=== PATIENT | male | born 1960 | race Caucasian/White ===

== ENCOUNTER 2018-07-07 10:10 | Inpatient (IN) ==
[2018-07-07] MEDS ORDERED: PHENYLEPHRINE 1 MG/10 ML SYRINGE IV ONE (10:38)
[2018-07-07] MEDS ORDERED: ePHEDrine 50 MG/ML AMP ONE (10:38)
[2018-07-07] MEDS ORDERED: SEVOFLURANE 1 UNIT/15 MINUTE INH ONE (10:38)
[2018-07-07] MEDS ORDERED: PROPOFOL 200 MG/20 ML VIAL IV ONE (10:38)
[2018-07-07] MEDS ORDERED: fentaNYL 100 MCG/2 ML VIAL ONE (10:39)
[2018-07-07] MEDS ORDERED: ROCURONIUM 100 MG/10 ML VIAL IV ONE (10:39)
[2018-07-07] MEDS ORDERED: MIDAZOLAM 2 MG/2 ML VIAL ONE (10:39)
[2018-07-07] MEDS ORDERED: LACTATED RINGERS 1,000 ML IV ONE (10:39)
[2018-07-07] MEDS ORDERED: SODIUM CHLORIDE 0.9% 1,000 ML IV ONE (10:41)
[2018-07-07] MEDS ORDERED: CEFTAROLINE 600 MG in SODIUM CHLORIDE 0.9% 100 ML IV STA (10:57)
[2018-07-07] MEDS ORDERED: LACTATED RINGERS 1,000 ML IV SCH (11:00)
[2018-07-07] MEDS ORDERED: ONDANSETRON 4 MG/2 ML VIAL ONE (11:07)
[2018-07-07 11:11] LABS: Basophils % 0.2 % (0.0-0.8); Eosinophils % 0.1 % (0.00-10.9); Hematocrit 48.2 VOL% (42.0-52.0); Hemoglobin 15.7 GM/DL (14.0-18.0); Immature Granulocytes % 0.4 %; Immature Granulocytes Absolute 0.04 #; Lymphocytes # 0.3 10*3/uL (1.4-4.0); Lymphocytes % 3.2 % (21.2-54.2); Mean Corpuscular HGB Conc 32.6 GM/DL (32-36); Mean Corpuscular Hemoglobin 29 PG (27-34); Mean Corpuscular Volume 90.3 FL (87-102); Mean Platelet Volume 10.3 FL (9.6-12.0); Monocytes # 0.5 10*3/uL (0.11-0.8); Monocytes % 4.8 % (1.7-12.7); Neutrophils % 91.3 % (38.7-73.9); Platelet Count 163 T/CUMM (130-400); Red Blood Count 5.34 MC/CUMM (3.8-5.5); Red Cell Distribution Width 12.9 % (9.3-17.3); White Blood Count 9.9 T/CUMM (4-12)
[2018-07-07] MEDS ORDERED: ONDANSETRON 4 MG/2 ML VIAL IV STA (11:16)
[2018-07-07] MEDS ORDERED: SODIUM CHLORIDE 0.9% 1,000 ML IV STA (11:17)
[2018-07-07 11:35] LABS: Band Neutrophils 14 % (0-10); Hypochromasia 1+; Lymphocytes 4 % (20-55); Platelet Estimate Adequate; Segmented Neutrophils 81 % (50-85); Total Cells Counted 100
[2018-07-07 12:00] LABS: Calcium 8.6 MG/DL (8.5-10.1); Osmolality,Calculated 282.1 MOS/KG (273-304); Potassium 3.8 MMOL/L (3.5-5.1); Total Protein 7.3 G/DL (6.4-8.3)
[2018-07-07] MEDS ORDERED: DEXTROSE 50% 25 GM/50 ML VIAL IV PRN (12:20)
[2018-07-07] MEDS ORDERED: PROMETHAZINE 25 MG/1 ML VIAL IM PRN (12:20)
[2018-07-07] MEDS ORDERED: ONDANSETRON 4 MG/2 ML VIAL IV PRN (12:20)
[2018-07-07] MEDS ORDERED: GLUCAGON 1 MG VIAL IM PRN (12:20)
[2018-07-07] MEDS ORDERED: ACETAMINOPHEN 325 MG TABLET PO PRN (12:20)
[2018-07-07] MEDS ORDERED: FAMOTIDINE 20 MG TABLET PO PRN (12:25)
[2018-07-07] MEDS ORDERED: SODIUM CHLORIDE 0.9% 2,000 ML IV STA (12:38)
[2018-07-07] MEDS: SODIUM CHLORIDE 0.9% 1,000 ML IV SCH ×2 (14:21→18:37)
[2018-07-07 15:39] LABS: Apearance,Urine Slightly Hazy (Clear); Bilirubin,Urine Negative (Negative); Blood, Urine Moderate mg/dL (Negative); Glucose,Urine (UA) >=500 mg/dL (Negative); Hyaline Casts,Urine 7 /LPF (0-3); Ketones,Urine 20 mg/dL (Negative); Mucus,Urine Occasional /LPF (Occasional); Nitrite,Urine Negative (Negative); Protein,Urine 30 MG/DL; RBC,Urine 1 /HPF (0-4); Urine Color Yellow (Yellow); Urine Specific Gravity 1.023 (1.001-1.035); Urine Urobilinogen < 2.0 EU/DL (0.2-1.0); WBC,Urine <1 /HPF (0-6)
[2018-07-07] MEDS ORDERED: methylPREDNISolone SOD SUC 125 MG/2 ML VIAL IV ONE (18:11)
[2018-07-07] MEDS ORDERED: diphenhydrAMINE 50 MG/1 ML VIAL IV ONE (18:12)
[2018-07-07] MEDS ORDERED: ACETAMINOPHEN 500 MG TABLET PO ONE (18:13)
[2018-07-07] MEDS: INSULIN LISPRO 100 UNIT/ML SUBCUT SCH ×2 (18:29→23:55)
[2018-07-07] MEDS: AMPICILLIN INJ 2,000 MG in SODIUM CHLORIDE 0.9% 100 ML IV SCH (18:36)
[2018-07-07] MEDS: GABAPENTIN 600 MG TABLET PO PRN ×2 (19:22→21:53)
[2018-07-07] MEDS: VANCOMYCIN INJ 2,250 MG in SODIUM CHLORIDE 0.9% 500 ML IV SCH (20:47)
[2018-07-07] MEDS: OMEGA 3 ACID ETHYL ESTERS 1 GM CAPSULE PO SCH (21:53)
[2018-07-07] MEDS: METOPROLOL TARTRATE 25 MG TABLET PO SCH (21:53)
[2018-07-07] MEDS: ENOXAPARIN 40 MG/0.4 ML SYRINGE SUBCUT SCH (21:55)
[2018-07-08] MEDS: AMPICILLIN INJ 2,000 MG in SODIUM CHLORIDE 0.9% 100 ML IV SCH ×4 (00:58→18:40)
[2018-07-08] MEDS ORDERED: diphenhydrAMINE 50 MG/1 ML VIAL IV PRN (02:24)
[2018-07-08] MEDS: diphenhydrAMINE CAP 50 MG CAPSULE PO PRN ×3 (02:41→21:48)
[2018-07-08] MEDS: SODIUM CHLORIDE 0.9% 1,000 ML IV SCH ×2 (04:00→06:12)
[2018-07-08 04:41] LABS: Basophils % 0.2 % (0.0-0.8); Hemoglobin 13.4 GM/DL (14.0-18.0); Immature Granulocytes % 0.4 %; Immature Granulocytes Absolute 0.05 #; Lymphocytes # 0.8 10*3/uL (1.4-4.0); Lymphocytes % 6.4 % (21.2-54.2); Mean Corpuscular HGB Conc 31.9 GM/DL (32-36); Mean Corpuscular Hemoglobin 29 PG (27-34); Mean Corpuscular Volume 91.3 FL (87-102); Mean Platelet Volume 11.1 FL (9.6-12.0); Monocytes # 0.7 10*3/uL (0.11-0.8); Monocytes % 5.5 % (1.7-12.7); Neutrophils # 10.6 10*3/uL (1.4-7.4); Neutrophils % 87.5 % (38.7-73.9); Platelet Count 136 T/CUMM (130-400); White Blood Count 12.1 T/CUMM (4-12)
[2018-07-08 04:50] LABS: Calcium 8.2 MG/DL (8.5-10.1)
[2018-07-08 04:53] LABS: Albumin 2.5 G/DL (3.4-5.0); Bilirubin,Total 1.2 MG/DL (0.2-1.0); Risk Ratio 3.13; Total Protein 6.9 G/DL (6.4-8.3); VLDL CHOLESTEROL 22.8 MG/DL
[2018-07-08 05:10] LABS: Platelet Estimate Adequate
[2018-07-08] MEDS ORDERED: NON-FORMULARY MEDICATION (Liraglutide [Victoza 3-Pak] 1.2 MG) SUBCUT SCH (09:00)
[2018-07-08] MEDS: MULTIVITAMIN (CENTRUM) TABLET PO SCH (09:11)
[2018-07-08] MEDS: ASPIRIN EC 81 MG TABLET PO SCH (09:11)
[2018-07-08] MEDS: VANCOMYCIN INJ 2,250 MG in SODIUM CHLORIDE 0.9% 500 ML IV SCH ×2 (09:11→21:46)
[2018-07-08] MEDS: PITAVASTATIN 2 MG TABLET PO SCH (09:12)
[2018-07-08] MEDS: METOPROLOL TARTRATE 25 MG TABLET PO SCH ×2 (09:12→21:47)
[2018-07-08] MEDS: OMEGA 3 ACID ETHYL ESTERS 1 GM CAPSULE PO SCH ×2 (09:12→21:47)
[2018-07-08] MEDS: CLOPIDOGREL 75 MG TABLET PO SCH (09:12)
[2018-07-08] MEDS: INSULIN LISPRO 100 UNIT/ML SUBCUT SCH ×4 (09:33→21:48)
[2018-07-08] MEDS: CLOTRIMAZOLE 1% CREAM 15 GM TUBE TOP SCH ×2 (12:15→21:48)
[2018-07-08] MEDS: SODIUM HYPOCHLORITE 0.25% IRRIG 473 ML BOTTLE TOP SCH (12:15)
[2018-07-08] MEDS: CHLORHEXIDINE 4% SOLN 118 ML BOTTLE TOP SCH (12:15)
[2018-07-08] MEDS: COLLAGENASE OINT 30 GM TUBE TOP SCH (12:15)
[2018-07-08] MEDS: INSULIN GLARGINE 100 UNIT/ML SUBCUT SCH (12:55)
[2018-07-08] MEDS: ENOXAPARIN 40 MG/0.4 ML SYRINGE SUBCUT SCH (21:47)
[2018-07-08] MEDS: GABAPENTIN 600 MG TABLET PO PRN ×2 (21:47→23:10)
[2018-07-09] MEDS: AMPICILLIN INJ 2,000 MG in SODIUM CHLORIDE 0.9% 100 ML IV SCH ×2 (01:58→06:42)
[2018-07-09 04:26] LABS: Basophils % 0.2 % (0.0-0.8); Eosinophils # 0.6 10*3/uL (0.0-0.87); Eosinophils % 5.3 % (0.00-10.9); Hematocrit 37.3 VOL% (42.0-52.0); Hemoglobin 12.2 GM/DL (14.0-18.0); Immature Granulocytes % 0.3 %; Immature Granulocytes Absolute 0.03 #; Lymphocytes # 1.5 10*3/uL (1.4-4.0); Lymphocytes % 12.2 % (21.2-54.2); Mean Corpuscular HGB Conc 32.7 GM/DL (32-36); Mean Corpuscular Hemoglobin 30 PG (27-34); Mean Corpuscular Volume 90.8 FL (87-102); Mean Platelet Volume 11.7 FL (9.6-12.0); Monocytes # 1.1 10*3/uL (0.11-0.8); Monocytes % 8.8 % (1.7-12.7); Neutrophils # 8.8 10*3/uL (1.4-7.4); Neutrophils % 73.2 % (38.7-73.9); Platelet Count 136 T/CUMM (130-400); Red Blood Count 4.11 MC/CUMM (3.8-5.5); Red Cell Distribution Width 13.2 % (9.3-17.3); White Blood Count 11.9 T/CUMM (4-12)
[2018-07-09 04:49] LABS: Calcium 7.8 MG/DL (8.5-10.1); Osmolality,Calculated 279.8 MOS/KG (273-304); Potassium 3.7 MMOL/L (3.5-5.1)
[2018-07-09] MEDS: VANCOMYCIN INJ 2,250 MG in SODIUM CHLORIDE 0.9% 500 ML IV SCH (09:30)
[2018-07-09] MEDS: CLOPIDOGREL 75 MG TABLET PO SCH (09:43)
[2018-07-09] MEDS: METOPROLOL TARTRATE 25 MG TABLET PO SCH (09:43)
[2018-07-09] MEDS: OMEGA 3 ACID ETHYL ESTERS 1 GM CAPSULE PO SCH (09:44)
[2018-07-09] MEDS: PITAVASTATIN 2 MG TABLET PO SCH (09:44)
[2018-07-09] MEDS: ASPIRIN EC 81 MG TABLET PO SCH (09:44)
[2018-07-09] MEDS: MULTIVITAMIN (CENTRUM) TABLET PO SCH (09:45)
[2018-07-09] MEDS: CHLORHEXIDINE 4% SOLN 118 ML BOTTLE TOP SCH (09:45)
[2018-07-09] MEDS: SODIUM HYPOCHLORITE 0.25% IRRIG 473 ML BOTTLE TOP SCH (09:45)
[2018-07-09] MEDS: CLOTRIMAZOLE 1% CREAM 15 GM TUBE TOP SCH (09:46)
[2018-07-09] MEDS: INSULIN GLARGINE 100 UNIT/ML SUBCUT SCH (09:46)
[2018-07-09] MEDS: COLLAGENASE OINT 30 GM TUBE TOP SCH (09:46)
[2018-07-09] MEDS: INSULIN LISPRO 100 UNIT/ML SUBCUT SCH ×2 (09:47→12:02)
[2018-07-09] MEDS: GABAPENTIN 600 MG TABLET PO PRN (09:53)
[2018-07-09] MEDS ORDERED: AMOXICILLIN 875 MG TABLET PO SCH (10:30)
[2018-07-09 12:34] VITALS: BP 103/70
== END 2018-07-09 15:17 | disposition home or self-care (01) | DRG 624 ==
LOC: N.ED 10:10 → N.EDINP 12:20 → N.2E 17:34
PROVIDERS: ADMIT Internal Medicine; ATTEND Internal Medicine

== ENCOUNTER 2018-07-14 14:23 | Inpatient (IN) ==
[2018-07-14] MEDS ORDERED: CEFTAROLINE 600 MG in SODIUM CHLORIDE 0.9% 100 ML IV STA (15:01)
[2018-07-14 15:26] LABS: Basophils % 0.4 % (0.0-0.8); Eosinophils # 0.2 10*3/uL (0.0-0.87); Eosinophils % 1.5 % (0.00-10.9); Hematocrit 38.2 VOL% (42.0-52.0); Hemoglobin 12.2 GM/DL (14.0-18.0); Lymphocytes # 2.2 10*3/uL (1.4-4.0); Lymphocytes % 21.6 % (21.2-54.2); Mean Corpuscular HGB Conc 31.9 GM/DL (32-36); Mean Corpuscular Hemoglobin 29 PG (27-34); Mean Corpuscular Volume 90.5 FL (87-102); Mean Platelet Volume 10.3 FL (9.6-12.0); Monocytes # 1.1 10*3/uL (0.11-0.8); Monocytes % 10.4 % (1.7-12.7); Neutrophils # 6.6 10*3/uL (1.4-7.4); Neutrophils % 65.1 % (38.7-73.9); Platelet Count 329 T/CUMM (130-400); Red Blood Count 4.22 MC/CUMM (3.8-5.5); Red Cell Distribution Width 12.9 % (9.3-17.3); White Blood Count 10.1 T/CUMM (4-12)
[2018-07-14] MEDS ORDERED: GLUCAGON 1 MG VIAL IM PRN (15:34)
[2018-07-14] MEDS ORDERED: DEXTROSE 50% 25 GM/50 ML SYRINGE IV PRN (15:34)
[2018-07-14] MEDS ORDERED: ONDANSETRON 4 MG/2 ML VIAL IV PRN (15:34)
[2018-07-14] MEDS ORDERED: FAMOTIDINE 20 MG TABLET PO PRN (15:37)
[2018-07-14 15:47] LABS: Albumin 2.2 G/DL (3.4-5.0); Bilirubin,Total 0.6 MG/DL (0.2-1.0); Calcium 8.5 MG/DL (8.5-10.1); Osmolality,Calculated 275.1 MOS/KG (273-304); Potassium 3.7 MMOL/L (3.5-5.1); Total Protein 7.2 G/DL (6.4-8.3)
[2018-07-14] MEDS ORDERED: IBUPROFEN 400 MG TABLET PO PRN (16:08)
[2018-07-14] MEDS: ENOXAPARIN 40 MG/0.4 ML SYRINGE SUBCUT SCH (18:11)
[2018-07-14] MEDS: INSULIN REGULAR 100 UNIT/ML SUBCUT SCH ×2 (18:11→21:22)
[2018-07-14] MEDS: diphenhydrAMINE CAP 25 MG CAPSULE PO PRN (18:12)
[2018-07-14] MEDS: GABAPENTIN 600 MG TABLET PO PRN ×2 (18:12→20:45)
[2018-07-14] MEDS: OMEGA 3 ACID ETHYL ESTERS 1 GM CAPSULE PO SCH (20:45)
[2018-07-14] MEDS: METOPROLOL TARTRATE 25 MG TABLET PO SCH (20:46)
[2018-07-14] MEDS: metFORMIN 500 MG TABLET PO SCH (20:46)
[2018-07-14] MEDS: hydrOXYzine HCL 25 MG TABLET PO SCH (20:46)
[2018-07-14] MEDS: CLOTRIMAZOLE 1% CREAM 15 GM TUBE TOP SCH (20:47)
[2018-07-15] MEDS: CEFTAROLINE 600 MG in SODIUM CHLORIDE 0.9% 100 ML IV SCH ×2 (03:57→15:04)
[2018-07-15 04:51] LABS: Basophils % 0.3 % (0.0-0.8); Eosinophils # 0.3 10*3/uL (0.0-0.87); Eosinophils % 2.9 % (0.00-10.9); Hemoglobin 11.2 GM/DL (14.0-18.0); Immature Granulocytes % 1.7 %; Immature Granulocytes Absolute 0.15 #; Lymphocytes # 2.3 10*3/uL (1.4-4.0); Lymphocytes % 26.2 % (21.2-54.2); Mean Corpuscular Hemoglobin 29 PG (27-34); Mean Corpuscular Volume 90.9 FL (87-102); Mean Platelet Volume 10.5 FL (9.6-12.0); Monocytes # 1.1 10*3/uL (0.11-0.8); Monocytes % 12.2 % (1.7-12.7); Neutrophils % 56.7 % (38.7-73.9); Platelet Count 324 T/CUMM (130-400); Red Blood Count 3.85 MC/CUMM (3.8-5.5); Red Cell Distribution Width 12.9 % (9.3-17.3); White Blood Count 8.9 T/CUMM (4-12)
[2018-07-15 05:05] LABS: Albumin 1.9 G/DL (3.4-5.0); Bilirubin,Total 0.8 MG/DL (0.2-1.0); Osmolality,Calculated 289.4 MOS/KG (273-304); Potassium 3.4 MMOL/L (3.5-5.1); Total Protein 6.3 G/DL (6.4-8.3)
[2018-07-15] MEDS: SIMVASTATIN 40 MG TABLET PO SCH (09:01)
[2018-07-15] MEDS: INSULIN REGULAR 100 UNIT/ML SUBCUT SCH ×4 (09:01→21:14)
[2018-07-15] MEDS: CLOPIDOGREL 75 MG TABLET PO SCH (09:01)
[2018-07-15] MEDS: metFORMIN 500 MG TABLET PO SCH (09:01)
[2018-07-15] MEDS: ASPIRIN EC 81 MG TABLET PO SCH (09:01)
[2018-07-15] MEDS: ESCITALOPRAM 10 MG TABLET PO SCH (09:01)
[2018-07-15] MEDS: PANTOPRAZOLE 40 MG TABLET PO SCH (09:01)
[2018-07-15] MEDS: hydrOXYzine HCL 25 MG TABLET PO SCH ×3 (09:01→21:07)
[2018-07-15] MEDS: OMEGA 3 ACID ETHYL ESTERS 1 GM CAPSULE PO SCH ×2 (09:01→21:07)
[2018-07-15] MEDS: METOPROLOL TARTRATE 25 MG TABLET PO SCH ×2 (09:01→21:07)
[2018-07-15] MEDS: MULTIVITAMIN (CENTRUM) TABLET PO SCH (09:01)
[2018-07-15] MEDS: CHLORHEXIDINE 4% SOLN 118 ML BOTTLE TOP SCH (09:01)
[2018-07-15] MEDS: CLOTRIMAZOLE 1% CREAM 15 GM TUBE TOP SCH ×2 (09:02→21:07)
[2018-07-15] MEDS: COLLAGENASE OINT 30 GM TUBE TOP SCH (09:02)
[2018-07-15] MEDS: GABAPENTIN 600 MG TABLET PO PRN ×2 (09:08→21:15)
[2018-07-15] MEDS ORDERED: INDOMETHACIN SR 75 MG CAPSULE PO SCH (12:30)
[2018-07-15] MEDS ORDERED: INDOMETHACIN 50 MG CAPSULE PO SCH (15:00)
[2018-07-15] MEDS: INSULIN GLARGINE 100 UNIT/ML SUBCUT SCH (15:04)
[2018-07-15] MEDS: ENOXAPARIN 40 MG/0.4 ML SYRINGE SUBCUT SCH (16:59)
[2018-07-15] MEDS: INDOMETHACIN 25 MG CAPSULE PO SCH (21:06)
[2018-07-15] MEDS: diphenhydrAMINE CAP 25 MG CAPSULE PO PRN (21:15)
[2018-07-16] MEDS: CEFTAROLINE 600 MG in SODIUM CHLORIDE 0.9% 100 ML IV SCH ×2 (03:53→15:56)
[2018-07-16 06:20] LABS: Basophils # 0.1 10*3/uL (0.0-0.2); Basophils % 0.7 % (0.0-0.8); Eosinophils # 0.3 10*3/uL (0.0-0.87); Eosinophils % 2.8 % (0.00-10.9); Hemoglobin 11.4 GM/DL (14.0-18.0); Immature Granulocytes % 1.2 %; Immature Granulocytes Absolute 0.11 #; Lymphocytes # 2.5 10*3/uL (1.4-4.0); Lymphocytes % 27.2 % (21.2-54.2); Mean Corpuscular HGB Conc 31.7 GM/DL (32-36); Mean Corpuscular Hemoglobin 29 PG (27-34); Mean Corpuscular Volume 90.9 FL (87-102); Mean Platelet Volume 10.7 FL (9.6-12.0); Monocytes # 1.1 10*3/uL (0.11-0.8); Monocytes % 11.7 % (1.7-12.7); Neutrophils # 5.2 10*3/uL (1.4-7.4); Neutrophils % 56.4 % (38.7-73.9); Platelet Count 339 T/CUMM (130-400); Red Blood Count 3.96 MC/CUMM (3.8-5.5); Red Cell Distribution Width 12.8 % (9.3-17.3); White Blood Count 9.2 T/CUMM (4-12)
[2018-07-16 06:35] LABS: Calcium 8.5 MG/DL (8.5-10.1); Osmolality,Calculated 281.7 MOS/KG (273-304); Potassium 3.3 MMOL/L (3.5-5.1)
[2018-07-16] MEDS: CLOTRIMAZOLE 1% CREAM 15 GM TUBE TOP SCH ×2 (08:50→21:25)
[2018-07-16] MEDS: Liraglutide [Victoza 3-Pak] 1.2 MG SUBCUT SCH (08:50)
[2018-07-16] MEDS: Dapagliflozin Propanediol [Farxiga] 10 MG PO SCH (08:50)
[2018-07-16] MEDS: ESCITALOPRAM 10 MG TABLET PO SCH (08:51)
[2018-07-16] MEDS: CLOPIDOGREL 75 MG TABLET PO SCH (08:51)
[2018-07-16] MEDS: METOPROLOL TARTRATE 25 MG TABLET PO SCH ×2 (08:51→21:25)
[2018-07-16] MEDS: PANTOPRAZOLE 40 MG TABLET PO SCH (08:51)
[2018-07-16] MEDS: OMEGA 3 ACID ETHYL ESTERS 1 GM CAPSULE PO SCH ×2 (08:51→21:25)
[2018-07-16] MEDS: MULTIVITAMIN (CENTRUM) TABLET PO SCH (08:51)
[2018-07-16] MEDS: hydrOXYzine HCL 25 MG TABLET PO SCH ×3 (08:51→21:25)
[2018-07-16] MEDS: INDOMETHACIN 25 MG CAPSULE PO SCH ×3 (08:51→21:25)
[2018-07-16] MEDS: SIMVASTATIN 40 MG TABLET PO SCH (08:51)
[2018-07-16] MEDS: ASPIRIN EC 81 MG TABLET PO SCH (08:51)
[2018-07-16] MEDS: INSULIN GLARGINE 100 UNIT/ML SUBCUT SCH (08:52)
[2018-07-16] MEDS: COLLAGENASE OINT 30 GM TUBE TOP SCH (08:52)
[2018-07-16] MEDS: INSULIN REGULAR 100 UNIT/ML SUBCUT SCH ×4 (08:52→21:25)
[2018-07-16] MEDS: CHLORHEXIDINE 4% SOLN 118 ML BOTTLE TOP SCH (09:12)
[2018-07-16] MEDS: GABAPENTIN 600 MG TABLET PO PRN ×2 (09:53→21:30)
[2018-07-16] MEDS: POTASSIUM CHLORIDE 20 MEQ TABLET PO SCH ×2 (10:41→14:40)
[2018-07-16] MEDS: ENOXAPARIN 40 MG/0.4 ML SYRINGE SUBCUT SCH (17:24)
[2018-07-17] MEDS: CEFTAROLINE 600 MG in SODIUM CHLORIDE 0.9% 100 ML IV SCH ×2 (03:15→15:13)
[2018-07-17 04:45] LABS: Cholesterol Crystals None Seen /LPF
[2018-07-17 04:49] LABS: Lymphocytes,Synovial Fluid 2 %; Neutrophils,Synovial Fluid 91 %
[2018-07-17 05:19] LABS: Basophils # 0.1 10*3/uL (0.0-0.2); Basophils % 0.6 % (0.0-0.8); Calcium 8.5 MG/DL (8.5-10.1); Eosinophils # 0.4 10*3/uL (0.0-0.87); Eosinophils % 4.2 % (0.00-10.9); Hematocrit 37.4 VOL% (42.0-52.0); Hemoglobin 11.8 GM/DL (14.0-18.0); Immature Granulocytes % 1.1 %; Lymphocytes # 2.2 10*3/uL (1.4-4.0); Lymphocytes % 23.2 % (21.2-54.2); Mean Corpuscular HGB Conc 31.6 GM/DL (32-36); Mean Corpuscular Hemoglobin 29 PG (27-34); Mean Corpuscular Volume 90.6 FL (87-102); Mean Platelet Volume 10.2 FL (9.6-12.0); Monocytes # 0.9 10*3/uL (0.11-0.8); Monocytes % 9.2 % (1.7-12.7); Neutrophils # 5.8 10*3/uL (1.4-7.4); Neutrophils % 61.7 % (38.7-73.9); Osmolality,Calculated 285.1 MOS/KG (273-304); Platelet Count 344 T/CUMM (130-400); Red Blood Count 4.13 MC/CUMM (3.8-5.5); Red Cell Distribution Width 12.5 % (9.3-17.3); White Blood Count 9.4 T/CUMM (4-12)
[2018-07-17] MEDS: INSULIN REGULAR 100 UNIT/ML SUBCUT SCH ×4 (08:10→21:25)
[2018-07-17] MEDS: Liraglutide [Victoza 3-Pak] 1.2 MG SUBCUT SCH (09:21)
[2018-07-17] MEDS: INSULIN GLARGINE 100 UNIT/ML SUBCUT SCH (09:22)
[2018-07-17] MEDS: METOPROLOL TARTRATE 25 MG TABLET PO SCH ×2 (09:23→21:27)
[2018-07-17] MEDS: OMEGA 3 ACID ETHYL ESTERS 1 GM CAPSULE PO SCH ×2 (09:25→21:25)
[2018-07-17] MEDS: SIMVASTATIN 40 MG TABLET PO SCH (09:25)
[2018-07-17] MEDS: INDOMETHACIN 25 MG CAPSULE PO SCH ×3 (09:25→21:25)
[2018-07-17] MEDS: Dapagliflozin Propanediol [Farxiga] 10 MG PO SCH (09:25)
[2018-07-17] MEDS: ASPIRIN EC 81 MG TABLET PO SCH (09:25)
[2018-07-17] MEDS: MULTIVITAMIN (CENTRUM) TABLET PO SCH (09:25)
[2018-07-17] MEDS: COLLAGENASE OINT 30 GM TUBE TOP SCH (09:26)
[2018-07-17] MEDS: CLOPIDOGREL 75 MG TABLET PO SCH (09:26)
[2018-07-17] MEDS: CHLORHEXIDINE 4% SOLN 118 ML BOTTLE TOP SCH (09:26)
[2018-07-17] MEDS: ESCITALOPRAM 10 MG TABLET PO SCH (09:26)
[2018-07-17] MEDS: hydrOXYzine HCL 25 MG TABLET PO SCH ×3 (09:26→21:25)
[2018-07-17] MEDS: PANTOPRAZOLE 40 MG TABLET PO SCH (09:26)
[2018-07-17] MEDS: CLOTRIMAZOLE 1% CREAM 15 GM TUBE TOP SCH ×2 (09:27→21:25)
[2018-07-17] MEDS: GABAPENTIN 600 MG TABLET PO PRN ×2 (09:32→21:25)
[2018-07-17] MEDS: ENOXAPARIN 40 MG/0.4 ML SYRINGE SUBCUT SCH (16:38)
[2018-07-18] MEDS: CEFTAROLINE 600 MG in SODIUM CHLORIDE 0.9% 100 ML IV SCH ×2 (03:43→15:40)
[2018-07-18 05:05] LABS: Basophils % 0.4 % (0.0-0.8); Eosinophils # 0.3 10*3/uL (0.0-0.87); Eosinophils % 2.4 % (0.00-10.9); Hemoglobin 11.6 GM/DL (14.0-18.0); Immature Granulocytes % 0.6 %; Immature Granulocytes Absolute 0.06 #; Lymphocytes % 18.4 % (21.2-54.2); Mean Corpuscular HGB Conc 32.2 GM/DL (32-36); Mean Corpuscular Hemoglobin 29 PG (27-34); Mean Platelet Volume 10.2 FL (9.6-12.0); Monocytes # 0.8 10*3/uL (0.11-0.8); Monocytes % 7.5 % (1.7-12.7); Neutrophils # 7.6 10*3/uL (1.4-7.4); Neutrophils % 70.7 % (38.7-73.9); Platelet Count 383 T/CUMM (130-400); Red Cell Distribution Width 12.5 % (9.3-17.3); White Blood Count 10.7 T/CUMM (4-12)
[2018-07-18 05:17] LABS: Calcium 8.4 MG/DL (8.5-10.1); Osmolality,Calculated 277.7 MOS/KG (273-304)
[2018-07-18] MEDS: INSULIN REGULAR 100 UNIT/ML SUBCUT SCH ×4 (07:37→21:49)
[2018-07-18] MEDS: ESCITALOPRAM 10 MG TABLET PO SCH (08:43)
[2018-07-18] MEDS: METOPROLOL TARTRATE 25 MG TABLET PO SCH ×2 (08:43→21:48)
[2018-07-18] MEDS: ASPIRIN EC 81 MG TABLET PO SCH (08:43)
[2018-07-18] MEDS: hydrOXYzine HCL 25 MG TABLET PO SCH ×3 (08:44→21:48)
[2018-07-18] MEDS: CLOPIDOGREL 75 MG TABLET PO SCH (08:44)
[2018-07-18] MEDS: OMEGA 3 ACID ETHYL ESTERS 1 GM CAPSULE PO SCH ×2 (08:44→21:48)
[2018-07-18] MEDS: PANTOPRAZOLE 40 MG TABLET PO SCH (08:44)
[2018-07-18] MEDS: MULTIVITAMIN (CENTRUM) TABLET PO SCH (08:44)
[2018-07-18] MEDS: SIMVASTATIN 40 MG TABLET PO SCH (08:44)
[2018-07-18] MEDS: GABAPENTIN 600 MG TABLET PO PRN (08:44)
[2018-07-18] MEDS: CHLORHEXIDINE 4% SOLN 118 ML BOTTLE TOP SCH (08:45)
[2018-07-18] MEDS: INSULIN GLARGINE 100 UNIT/ML SUBCUT SCH (08:45)
[2018-07-18] MEDS: Dapagliflozin Propanediol [Farxiga] 10 MG PO SCH (08:45)
[2018-07-18] MEDS: Liraglutide [Victoza 3-Pak] 1.2 MG SUBCUT SCH (08:45)
[2018-07-18] MEDS: COLLAGENASE OINT 30 GM TUBE TOP SCH (08:46)
[2018-07-18] MEDS: LOSARTAN 50 MG TABLET PO SCH (08:46)
[2018-07-18] MEDS: CLOTRIMAZOLE 1% CREAM 15 GM TUBE TOP SCH ×2 (08:46→21:49)
[2018-07-18] MEDS ORDERED: LOSARTAN 50 MG TABLET PO SCH (09:00)
[2018-07-18] MEDS: INDOMETHACIN 25 MG CAPSULE PO SCH ×3 (09:04→21:48)
[2018-07-18] MEDS: ENOXAPARIN 40 MG/0.4 ML SYRINGE SUBCUT SCH (16:32)
[2018-07-19] MEDS: CEFTAROLINE 600 MG in SODIUM CHLORIDE 0.9% 100 ML IV SCH ×2 (03:10→15:09)
[2018-07-19 05:38] LABS: Basophils % 0.4 % (0.0-0.8); Eosinophils # 0.2 10*3/uL (0.0-0.87); Eosinophils % 2.2 % (0.00-10.9); Hematocrit 36.1 VOL% (42.0-52.0); Hemoglobin 11.6 GM/DL (14.0-18.0); Immature Granulocytes % 0.8 %; Immature Granulocytes Absolute 0.08 #; Lymphocytes # 1.9 10*3/uL (1.4-4.0); Lymphocytes % 18.1 % (21.2-54.2); Mean Corpuscular HGB Conc 32.1 GM/DL (32-36); Mean Corpuscular Hemoglobin 29 PG (27-34); Mean Corpuscular Volume 90.3 FL (87-102); Monocytes % 9.2 % (1.7-12.7); Neutrophils # 7.2 10*3/uL (1.4-7.4); Neutrophils % 69.3 % (38.7-73.9); Platelet Count 406 T/CUMM (130-400); Red Cell Distribution Width 12.4 % (9.3-17.3); White Blood Count 10.4 T/CUMM (4-12)
[2018-07-19 06:01] LABS: Calcium 8.5 MG/DL (8.5-10.1); Osmolality,Calculated 283.4 MOS/KG (273-304); Potassium 3.8 MMOL/L (3.5-5.1)
[2018-07-19] MEDS: INSULIN REGULAR 100 UNIT/ML SUBCUT SCH ×4 (08:27→21:34)
[2018-07-19] MEDS: INSULIN GLARGINE 100 UNIT/ML SUBCUT SCH (09:29)
[2018-07-19] MEDS: ESCITALOPRAM 10 MG TABLET PO SCH (09:29)
[2018-07-19] MEDS: CLOPIDOGREL 75 MG TABLET PO SCH (09:29)
[2018-07-19] MEDS: ASPIRIN EC 81 MG TABLET PO SCH (09:29)
[2018-07-19] MEDS: SIMVASTATIN 40 MG TABLET PO SCH (09:29)
[2018-07-19] MEDS: PANTOPRAZOLE 40 MG TABLET PO SCH (09:29)
[2018-07-19] MEDS: INDOMETHACIN 25 MG CAPSULE PO SCH ×3 (09:30→21:36)
[2018-07-19] MEDS: GABAPENTIN 600 MG TABLET PO PRN ×2 (09:30→21:34)
[2018-07-19] MEDS: METOPROLOL TARTRATE 25 MG TABLET PO SCH ×2 (09:30→21:34)
[2018-07-19] MEDS: MULTIVITAMIN (CENTRUM) TABLET PO SCH (09:30)
[2018-07-19] MEDS: CHLORHEXIDINE 4% SOLN 118 ML BOTTLE TOP SCH (09:30)
[2018-07-19] MEDS: Liraglutide [Victoza 3-Pak] 1.2 MG SUBCUT SCH (09:30)
[2018-07-19] MEDS: OMEGA 3 ACID ETHYL ESTERS 1 GM CAPSULE PO SCH ×2 (09:30→21:34)
[2018-07-19] MEDS: hydrOXYzine HCL 25 MG TABLET PO SCH ×3 (09:30→21:34)
[2018-07-19] MEDS: LOSARTAN 50 MG TABLET PO SCH (09:30)
[2018-07-19] MEDS: Dapagliflozin Propanediol [Farxiga] 10 MG PO SCH (09:30)
[2018-07-19] MEDS: CLOTRIMAZOLE 1% CREAM 15 GM TUBE TOP SCH ×2 (09:31→21:36)
[2018-07-19] MEDS: COLLAGENASE OINT 30 GM TUBE TOP SCH (09:31)
[2018-07-19] MEDS: ENOXAPARIN 40 MG/0.4 ML SYRINGE SUBCUT SCH (16:33)
[2018-07-20] MEDS: CEFTAROLINE 600 MG in SODIUM CHLORIDE 0.9% 100 ML IV SCH ×2 (03:37→16:52)
[2018-07-20] MEDS: INSULIN REGULAR 100 UNIT/ML SUBCUT SCH ×4 (08:00→22:12)
[2018-07-20] MEDS: MULTIVITAMIN (CENTRUM) TABLET PO SCH (09:08)
[2018-07-20] MEDS: SIMVASTATIN 40 MG TABLET PO SCH (09:08)
[2018-07-20] MEDS: CLOPIDOGREL 75 MG TABLET PO SCH (09:08)
[2018-07-20] MEDS: Dapagliflozin Propanediol [Farxiga] 10 MG PO SCH (09:08)
[2018-07-20] MEDS: ESCITALOPRAM 10 MG TABLET PO SCH (09:09)
[2018-07-20] MEDS: OMEGA 3 ACID ETHYL ESTERS 1 GM CAPSULE PO SCH ×2 (09:09→22:13)
[2018-07-20] MEDS: GABAPENTIN 600 MG TABLET PO PRN ×2 (09:09→22:12)
[2018-07-20] MEDS: ASPIRIN EC 81 MG TABLET PO SCH (09:09)
[2018-07-20] MEDS: PANTOPRAZOLE 40 MG TABLET PO SCH (09:10)
[2018-07-20] MEDS: INDOMETHACIN 25 MG CAPSULE PO SCH ×3 (09:10→22:13)
[2018-07-20] MEDS: METOPROLOL TARTRATE 25 MG TABLET PO SCH ×2 (09:10→22:13)
[2018-07-20] MEDS: CLOTRIMAZOLE 1% CREAM 15 GM TUBE TOP SCH ×2 (09:11→22:13)
[2018-07-20] MEDS: CHLORHEXIDINE 4% SOLN 118 ML BOTTLE TOP SCH (09:11)
[2018-07-20] MEDS: INSULIN GLARGINE 100 UNIT/ML SUBCUT SCH (09:11)
[2018-07-20] MEDS: hydrOXYzine HCL 25 MG TABLET PO SCH ×3 (09:12→22:13)
[2018-07-20] MEDS: LOSARTAN 50 MG TABLET PO SCH (09:12)
[2018-07-20] MEDS: COLLAGENASE OINT 30 GM TUBE TOP SCH (09:13)
[2018-07-20] MEDS: Liraglutide [Victoza 3-Pak] 1.2 MG SUBCUT SCH (10:57)
[2018-07-20] MEDS: ENOXAPARIN 40 MG/0.4 ML SYRINGE SUBCUT SCH (16:53)
[2018-07-21] MEDS: CEFTAROLINE 600 MG in SODIUM CHLORIDE 0.9% 100 ML IV SCH (04:16)
[2018-07-21] MEDS: INSULIN REGULAR 100 UNIT/ML SUBCUT SCH ×2 (08:37→11:41)
[2018-07-21] MEDS: INSULIN GLARGINE 100 UNIT/ML SUBCUT SCH (08:38)
[2018-07-21] MEDS: Dapagliflozin Propanediol [Farxiga] 10 MG PO SCH (08:38)
[2018-07-21] MEDS: OMEGA 3 ACID ETHYL ESTERS 1 GM CAPSULE PO SCH (08:39)
[2018-07-21] MEDS: MULTIVITAMIN (CENTRUM) TABLET PO SCH (08:39)
[2018-07-21] MEDS: ESCITALOPRAM 10 MG TABLET PO SCH (08:39)
[2018-07-21] MEDS: CLOPIDOGREL 75 MG TABLET PO SCH (08:39)
[2018-07-21] MEDS: LOSARTAN 50 MG TABLET PO SCH (08:39)
[2018-07-21] MEDS: PANTOPRAZOLE 40 MG TABLET PO SCH (08:40)
[2018-07-21] MEDS: ASPIRIN EC 81 MG TABLET PO SCH (08:40)
[2018-07-21] MEDS: SIMVASTATIN 40 MG TABLET PO SCH (08:40)
[2018-07-21] MEDS: Liraglutide [Victoza 3-Pak] 1.2 MG SUBCUT SCH (08:52)
[2018-07-21] MEDS: INDOMETHACIN 25 MG CAPSULE PO SCH (08:53)
[2018-07-21] MEDS: GABAPENTIN 600 MG TABLET PO PRN (08:53)
[2018-07-21] MEDS: hydrOXYzine HCL 25 MG TABLET PO SCH (09:10)
[2018-07-21] MEDS: METOPROLOL TARTRATE 25 MG TABLET PO SCH (09:22)
[2018-07-21] MEDS: COLLAGENASE OINT 30 GM TUBE TOP SCH (09:36)
[2018-07-21] MEDS: CHLORHEXIDINE 4% SOLN 118 ML BOTTLE TOP SCH (09:36)
[2018-07-21] MEDS: CLOTRIMAZOLE 1% CREAM 15 GM TUBE TOP SCH (09:36)
[2018-07-21 11:43] VITALS: BP 148/94
== END 2018-07-21 14:39 | disposition home or self-care (01) | DRG 638 ==
LOC: N.ED 14:23 → N.EDINP 15:34 → SUATTDRO 15:34 → N.3E 16:49
PROVIDERS: ADMIT Internal Medicine; ATTEND Internal Medicine

== ENCOUNTER 2021-10-01 10:18 | Inpatient (IN) ==
[2021-10-01] MEDS ORDERED: KETOROLAC 60 MG/2 ML VIAL IM STA (12:18)
[2021-10-01 12:25] LABS: Basophils # 0.1 10*3/uL (0.0-0.2); Basophils % 0.5 % (0.0-0.8); Eosinophils # 0.2 10*3/uL (0.0-0.87); Eosinophils % 1.4 % (0.00-10.9); Hematocrit 40.1 VOL% (42.0-52.0); Hemoglobin 13.2 GM/DL (14.0-18.0); Immature Granulocytes % 2.2 %; Immature Granulocytes Absolute 0.29 #; Lymphocytes # 1.4 10*3/uL (1.4-4.0); Lymphocytes % 10.3 % (21.2-54.2); Mean Corpuscular HGB Conc 32.9 GM/DL (32-36); Mean Corpuscular Volume 89.9 FL (87-102); Monocytes # 1.4 10*3/uL (0.11-0.8); Monocytes % 10.3 % (1.7-12.7); Neutrophils % 75.3 % (38.7-73.9); Platelet Count 281 T/CUMM (130-400); Red Blood Count 4.46 MC/CUMM (3.8-5.5); Red Cell Distribution Width 14.3 % (9.3-17.3); White Blood Count 13.2 T/CUMM (4-12)
[2021-10-01 12:44] LABS: Calcium 9.4 MG/DL (8.5-10.1); Osmolality,Calculated 282.2 MOS/KG (273-304); Potassium 4.3 MMOL/L (3.5-5.1)
[2021-10-01 13:04] LABS: Band Neutrophils 10 % (0-10); Eosinophils 1 % (0-10); Lymphocytes 13 % (20-55); Total Cells Counted 100
[2021-10-01 13:05] LABS: Polychromasia Slight
[2021-10-01 13:07] LABS: Platelet Estimate Normal
[2021-10-01] MEDS ORDERED: SODIUM CHLORIDE 0.9% 1,000 ML IV STA (13:36)
[2021-10-01] MEDS ORDERED: ONDANSETRON 4 MG/2 ML VIAL IV STA (15:51)
[2021-10-01] MEDS ORDERED: ONDANSETRON 4 MG/2 ML VIAL ONE (15:52)
[2021-10-01] MEDS ORDERED: MORPHINE 2 MG/1 ML SYRINGE IV STA (15:53)
[2021-10-01] MEDS ORDERED: MORPHINE 2 MG/1 ML SYRINGE IV PRN (17:56)
[2021-10-01] MEDS ORDERED: ONDANSETRON 4 MG/2 ML VIAL IV PRN (17:56)
[2021-10-01] MEDS ORDERED: VANCOMYCIN INJ 2,250 MG in SODIUM CHLORIDE 0.9% 250 ML IV SCH (19:00)
[2021-10-01] MEDS: cefTRIAXone 1,000 MG in SODIUM CHLORIDE 0.9% 100 ML IV SCH (19:49)
[2021-10-01] MEDS: hydrALAZINE 20 MG/1 ML VIAL IV PRN (20:08)
[2021-10-01] MEDS: diphenhydrAMINE CAP 50 MG CAPSULE PO PRN (23:02)
[2021-10-01] MEDS: VANCOMYCIN INJ 2,000 MG in SODIUM CHLORIDE 0.9% 500 ML IV SCH (23:05)
[2021-10-02 06:27] LABS: Risk Ratio 5.07; Thyroid Stimulating Hormone 0.515 uIU/ml (0.358-3.74); VLDL Cholesterol 22.2 MG/DL
[2021-10-02] MEDS ORDERED: MIDAZOLAM 2 MG/2 ML VIAL ONE (09:19)
[2021-10-02] MEDS ORDERED: SUCCINYLCHOLINE 200 MG/10 ML VIAL ONE (09:19)
[2021-10-02] MEDS ORDERED: propofoL 200 MG/20 ML VIAL IV ONE (09:19)
[2021-10-02] MEDS ORDERED: ROCURONIUM 50 MG/5 ML VIAL IV ONE (09:19)
[2021-10-02] MEDS ORDERED: LIDOCAINE 2% 5 ML VIAL ONE (09:19)
[2021-10-02] MEDS ORDERED: fentaNYL 250 MCG/5 ML VIAL ONE (09:20)
[2021-10-02] MEDS ORDERED: LACTATED RINGERS 1,000 ML IV SCH (11:30)
[2021-10-02] MEDS ORDERED: SEVOFLURANE 1 UNIT/15 MINUTE INH ONE ×2 (12:44→13:22)
[2021-10-02] MEDS ORDERED: PHENYLEPHRINE 1 MG/10 ML SYRINGE IV ONE (12:56)
[2021-10-02] MEDS ORDERED: LACTATED RINGERS 1,000 ML IV ONE (12:56)
[2021-10-02] MEDS ORDERED: SUGAMMADEX 200 MG/2 ML VIAL IV ONE (13:16)
[2021-10-02] MEDS ORDERED: MAGNESIUM HYDROXIDE SUSP 30 ML UDCUP PO PRN (13:41)
[2021-10-02] MEDS: LACTATED RINGERS 1,000 ML IV SCH ×3 (13:42→20:33)
[2021-10-02] MEDS ORDERED: MORPHINE 2 MG/1 ML SYRINGE IV PRN (13:43)
[2021-10-02] MEDS ORDERED: MORPHINE 4 MG/1 ML VIAL IV PRN (13:43)
[2021-10-02] MEDS ORDERED: DEXTROSE 10% 250 ML BAG IV PRN (14:28)
[2021-10-02] MEDS ORDERED: GLUCAGON 1 MG VIAL IM PRN (14:28)
[2021-10-02] MEDS: VANCOMYCIN INJ 2,000 MG in SODIUM CHLORIDE 0.9% 500 ML IV SCH (15:04)
[2021-10-02] MEDS: INSULIN REGULAR 100 UNIT/ML SUBCUT SCH ×2 (17:07→20:33)
[2021-10-02] MEDS: cefTRIAXone 1,000 MG in SODIUM CHLORIDE 0.9% 100 ML IV SCH (20:31)
[2021-10-03] MEDS: MORPHINE 2 MG/1 ML SYRINGE IV PRN ×3 (01:10→08:13)
[2021-10-03] MEDS: diphenhydrAMINE CAP 50 MG CAPSULE PO PRN (02:49)
[2021-10-03] MEDS: VANCOMYCIN INJ 2,000 MG in SODIUM CHLORIDE 0.9% 500 ML IV SCH ×2 (02:50→16:07)
[2021-10-03] MEDS: LACTATED RINGERS 1,000 ML IV SCH ×2 (05:11→13:06)
[2021-10-03 06:55] LABS: Basophils # 0.1 10*3/uL (0.0-0.2); Basophils % 0.6 % (0.0-0.8); Eosinophils # 0.2 10*3/uL (0.0-0.87); Eosinophils % 1.2 % (0.00-10.9); Hematocrit 39.6 VOL% (42.0-52.0); Hemoglobin 12.5 GM/DL (14.0-18.0); Immature Granulocytes % 3.4 %; Immature Granulocytes Absolute 0.59 #; Lymphocytes # 2.3 10*3/uL (1.4-4.0); Lymphocytes % 13.1 % (21.2-54.2); Mean Corpuscular HGB Conc 31.6 GM/DL (32-36); Mean Corpuscular Volume 91.2 FL (87-102); Mean Platelet Volume 10.2 FL (9.6-12.0); Monocytes # 1.4 10*3/uL (0.11-0.8); Monocytes % 7.9 % (1.7-12.7); Neutrophils % 73.8 % (38.7-73.9); Platelet Count 362 T/CUMM (130-400); Red Blood Count 4.34 MC/CUMM (3.8-5.5); Red Cell Distribution Width 14.2 % (9.3-17.3); White Blood Count 17.4 T/CUMM (4-12)
[2021-10-03 07:19] LABS: Band Neutrophils 5 % (0-10); Eosinophils 1 % (0-10); Lymphocytes 15 % (20-55); Metamyelocytes 1 %; Toxic Granulation 1+
[2021-10-03 07:21] LABS: Platelet Estimate Increased
[2021-10-03 07:22] LABS: Calcium 8.9 MG/DL (8.5-10.1); Osmolality,Calculated 275.2 MOS/KG (273-304); Potassium 3.5 MMOL/L (3.5-5.1)
[2021-10-03 07:23] LABS: Total Cells Counted 100
[2021-10-03] MEDS: INSULIN REGULAR 100 UNIT/ML SUBCUT SCH ×4 (08:12→20:57)
[2021-10-03] MEDS: METOPROLOL SUCCINATE XL 50 MG TABLET PO SCH (16:06)
[2021-10-03] MEDS: GABAPENTIN 600 MG TABLET PO SCH ×2 (16:06→20:57)
[2021-10-03] MEDS: metFORMIN 500 MG TABLET PO SCH (20:57)
[2021-10-04] MEDS: VANCOMYCIN INJ 2,000 MG in SODIUM CHLORIDE 0.9% 500 ML IV SCH ×2 (03:50→16:57)
[2021-10-04] MEDS: LACTATED RINGERS 1,000 ML IV SCH ×4 (03:51→17:17)
[2021-10-04 05:18] LABS: Basophils # 0.1 10*3/uL (0.0-0.2); Eosinophils # 0.4 10*3/uL (0.0-0.87); Eosinophils % 2.7 % (0.00-10.9); Hematocrit 36.1 VOL% (42.0-52.0); Hemoglobin 11.3 GM/DL (14.0-18.0); Immature Granulocytes % 4.7 %; Immature Granulocytes Absolute 0.68 #; Lymphocytes # 2.4 10*3/uL (1.4-4.0); Lymphocytes % 16.8 % (21.2-54.2); Mean Corpuscular HGB Conc 31.3 GM/DL (32-36); Mean Corpuscular Volume 92.1 FL (87-102); Mean Platelet Volume 10.5 FL (9.6-12.0); Monocytes # 1.2 10*3/uL (0.11-0.8); Monocytes % 8.3 % (1.7-12.7); Neutrophils % 66.5 % (38.7-73.9); Platelet Count 290 T/CUMM (130-400); Red Blood Count 3.92 MC/CUMM (3.8-5.5); Red Cell Distribution Width 14.4 % (9.3-17.3); White Blood Count 14.5 T/CUMM (4-12)
[2021-10-04 06:10] LABS: Calcium 8.2 MG/DL (8.5-10.1); Osmolality,Calculated 280.7 MOS/KG (273-304); Potassium 3.6 MMOL/L (3.5-5.1)
[2021-10-04 06:13] LABS: Band Neutrophils 2 % (0-10); Lymphocytes 18 % (20-55); Metamyelocytes 1 %; Myelocytes 1 %; Total Cells Counted 100
[2021-10-04 06:14] LABS: Polychromasia Few
[2021-10-04 06:15] LABS: Platelet Estimate Normal
[2021-10-04] MEDS: metFORMIN 500 MG TABLET PO SCH ×2 (08:20→21:24)
[2021-10-04] MEDS: GABAPENTIN 600 MG TABLET PO SCH ×3 (08:20→21:24)
[2021-10-04] MEDS: HydrOXYzine PAMOATE 25 MG CAPSULE PO PRN (08:20)
[2021-10-04] MEDS: CLOPIDOGREL 75 MG TABLET PO SCH (08:20)
[2021-10-04] MEDS: METOPROLOL SUCCINATE XL 50 MG TABLET PO SCH (08:21)
[2021-10-04] MEDS: INSULIN REGULAR 100 UNIT/ML SUBCUT SCH ×4 (08:21→21:29)
[2021-10-04] MEDS: Liraglutide [Victoza 3-Pak] SUBCUT SCH (09:14)
[2021-10-04] MEDS: MORPHINE 2 MG/1 ML SYRINGE IV PRN (12:01)
[2021-10-04] MEDS: INSULIN GLARGINE 100 UNIT/ML SUBCUT SCH (14:58)
[2021-10-05] MEDS: VANCOMYCIN INJ 2,000 MG in SODIUM CHLORIDE 0.9% 500 ML IV SCH ×2 (03:09→15:48)
[2021-10-05 05:17] LABS: Basophils # 0.1 10*3/uL (0.0-0.2); Basophils % 0.8 % (0.0-0.8); Eosinophils # 0.5 10*3/uL (0.0-0.87); Eosinophils % 3.7 % (0.00-10.9); Hematocrit 33.5 VOL% (42.0-52.0); Hemoglobin 10.8 GM/DL (14.0-18.0); Immature Granulocytes % 4.2 %; Immature Granulocytes Absolute 0.53 #; Lymphocytes # 2.4 10*3/uL (1.4-4.0); Lymphocytes % 18.6 % (21.2-54.2); Mean Corpuscular HGB Conc 32.2 GM/DL (32-36); Mean Corpuscular Volume 91.8 FL (87-102); Monocytes # 0.9 10*3/uL (0.11-0.8); Monocytes % 7.4 % (1.7-12.7); Neutrophils % 65.3 % (38.7-73.9); Platelet Count 339 T/CUMM (130-400); Red Blood Count 3.65 MC/CUMM (3.8-5.5); Red Cell Distribution Width 14.3 % (9.3-17.3); White Blood Count 12.7 T/CUMM (4-12)
[2021-10-05] MEDS: LACTATED RINGERS 1,000 ML IV SCH ×5 (05:36→22:51)
[2021-10-05 05:38] LABS: Calcium 8.5 MG/DL (8.5-10.1); Osmolality,Calculated 278.5 MOS/KG (273-304); Potassium 3.6 MMOL/L (3.5-5.1)
[2021-10-05 05:50] LABS: Eosinophils 2 % (0-10); Lymphocytes 20 % (20-55); Total Cells Counted 100
[2021-10-05 05:51] LABS: Platelet Estimate Adequate
[2021-10-05] MEDS: GABAPENTIN 600 MG TABLET PO SCH ×3 (08:23→21:34)
[2021-10-05] MEDS: metFORMIN 500 MG TABLET PO SCH ×2 (08:23→21:34)
[2021-10-05] MEDS: METOPROLOL SUCCINATE XL 50 MG TABLET PO SCH (08:24)
[2021-10-05] MEDS: CLOPIDOGREL 75 MG TABLET PO SCH (08:26)
[2021-10-05] MEDS: INSULIN GLARGINE 100 UNIT/ML SUBCUT SCH (08:26)
[2021-10-05] MEDS: INSULIN REGULAR 100 UNIT/ML SUBCUT SCH ×4 (09:51→21:34)
[2021-10-05] MEDS: hydrALAZINE 20 MG/1 ML VIAL IV PRN ×2 (11:27→18:08)
[2021-10-05] MEDS: Liraglutide [Victoza 3-Pak] SUBCUT SCH (17:15)
[2021-10-05 21:56] LABS: Ehrlichia Chaffeensis (HME)IgG <1:64 titer (<1:64)
[2021-10-06] MEDS: LACTATED RINGERS 1,000 ML IV SCH ×4 (01:19→18:38)
[2021-10-06 05:31] LABS: Basophils # 0.1 10*3/uL (0.0-0.2); Basophils % 0.7 % (0.0-0.8); Eosinophils # 0.4 10*3/uL (0.0-0.87); Eosinophils % 3.5 % (0.00-10.9); Hematocrit 34.8 VOL% (42.0-52.0); Immature Granulocytes % 3.8 %; Immature Granulocytes Absolute 0.41 #; Lymphocytes # 2.3 10*3/uL (1.4-4.0); Lymphocytes % 21.1 % (21.2-54.2); Mean Corpuscular HGB Conc 31.6 GM/DL (32-36); Mean Corpuscular Volume 91.6 FL (87-102); Monocytes # 0.8 10*3/uL (0.11-0.8); Monocytes % 7.8 % (1.7-12.7); Neutrophils % 63.1 % (38.7-73.9); Platelet Count 358 T/CUMM (130-400); Red Cell Distribution Width 14.1 % (9.3-17.3); White Blood Count 10.8 T/CUMM (4-12)
[2021-10-06 05:48] LABS: Calcium 8.4 MG/DL (8.5-10.1); Osmolality,Calculated 279.3 MOS/KG (273-304); Potassium 3.5 MMOL/L (3.5-5.1)
[2021-10-06] MEDS: INSULIN REGULAR 100 UNIT/ML SUBCUT SCH ×4 (08:07→21:43)
[2021-10-06] MEDS: GABAPENTIN 600 MG TABLET PO SCH ×3 (09:30→21:44)
[2021-10-06] MEDS: metFORMIN 500 MG TABLET PO SCH ×2 (09:30→21:42)
[2021-10-06] MEDS: METOPROLOL SUCCINATE XL 50 MG TABLET PO SCH (09:31)
[2021-10-06] MEDS: CLOPIDOGREL 75 MG TABLET PO SCH (09:31)
[2021-10-06] MEDS: INSULIN GLARGINE 100 UNIT/ML SUBCUT SCH (09:32)
[2021-10-06] MEDS: VANCOMYCIN INJ 2,000 MG in SODIUM CHLORIDE 0.9% 500 ML IV SCH (10:35)
[2021-10-06] MEDS: Liraglutide [Victoza 3-Pak] SUBCUT SCH (13:06)
[2021-10-06] MEDS ORDERED: PROMETHAZINE INJ 12.5 MG in SODIUM CHLORIDE 0.9% 50 ML IV PRN (13:08)
[2021-10-06 13:36] LABS: % Iron Saturation 14.1 % (18-50); Ferritin 332.5 ng/mL (26-388)
[2021-10-06 13:36] LABS: Folate 8.78 NG/ML (5.38-24.0)
[2021-10-06] MEDS ORDERED: FUROSEMIDE 20 MG/2 ML VIAL IV ONE (18:28)
[2021-10-06] MEDS: HYDROXYCHLOROQUINE 200 MG TABLET PO SCH (21:45)
[2021-10-07] MEDS: VANCOMYCIN INJ 2,000 MG in SODIUM CHLORIDE 0.9% 500 ML IV SCH ×2 (03:39→23:51)
[2021-10-07 06:35] LABS: Basophils % 0.3 % (0.0-0.8); Eosinophils # 0.4 10*3/uL (0.0-0.87); Eosinophils % 3.3 % (0.00-10.9); Hematocrit 34.8 VOL% (42.0-52.0); Hemoglobin 10.9 GM/DL (14.0-18.0); Immature Granulocytes % 2.1 %; Immature Granulocytes Absolute 0.24 #; Lymphocytes # 1.9 10*3/uL (1.4-4.0); Lymphocytes % 16.4 % (21.2-54.2); Mean Corpuscular HGB Conc 31.3 GM/DL (32-36); Mean Corpuscular Volume 92.1 FL (87-102); Mean Platelet Volume 10.1 FL (9.6-12.0); Monocytes # 0.8 10*3/uL (0.11-0.8); Monocytes % 6.6 % (1.7-12.7); Neutrophils % 71.3 % (38.7-73.9); Platelet Count 397 T/CUMM (130-400); Red Blood Count 3.78 MC/CUMM (3.8-5.5); Red Cell Distribution Width 14.1 % (9.3-17.3); White Blood Count 11.6 T/CUMM (4-12)
[2021-10-07 06:52] LABS: Calcium 8.3 MG/DL (8.5-10.1); Osmolality,Calculated 284.3 MOS/KG (273-304); Potassium 3.9 MMOL/L (3.5-5.1)
[2021-10-07] MEDS: metFORMIN 500 MG TABLET PO SCH ×2 (09:47→21:28)
[2021-10-07] MEDS: GABAPENTIN 600 MG TABLET PO SCH ×3 (09:48→21:28)
[2021-10-07] MEDS: ESCITALOPRAM 10 MG TABLET PO SCH (09:48)
[2021-10-07] MEDS: CLOPIDOGREL 75 MG TABLET PO SCH (09:48)
[2021-10-07] MEDS: HYDROXYCHLOROQUINE 200 MG TABLET PO SCH ×2 (09:48→21:32)
[2021-10-07] MEDS: INSULIN REGULAR 100 UNIT/ML SUBCUT SCH ×4 (09:49→21:31)
[2021-10-07] MEDS: METOPROLOL SUCCINATE XL 50 MG TABLET PO SCH (09:49)
[2021-10-07] MEDS: INSULIN GLARGINE 100 UNIT/ML SUBCUT SCH (09:49)
[2021-10-07] MEDS: HydrOXYzine PAMOATE 25 MG CAPSULE PO PRN (12:17)
[2021-10-07] MEDS: Liraglutide [Victoza 3-Pak] SUBCUT SCH (16:34)
[2021-10-07] MEDS: LOSARTAN 25 MG TABLET PO SCH (21:28)
[2021-10-08 06:15] LABS: Basophils # 0.1 10*3/uL (0.0-0.2); Basophils % 0.5 % (0.0-0.8); Eosinophils # 0.4 10*3/uL (0.0-0.87); Eosinophils % 3.7 % (0.00-10.9); Hematocrit 34.4 VOL% (42.0-52.0); Hemoglobin 10.9 GM/DL (14.0-18.0); Immature Granulocytes % 1.2 %; Immature Granulocytes Absolute 0.13 #; Lymphocytes # 2.3 10*3/uL (1.4-4.0); Lymphocytes % 20.8 % (21.2-54.2); Mean Corpuscular HGB Conc 31.7 GM/DL (32-36); Mean Corpuscular Volume 91.7 FL (87-102); Mean Platelet Volume 10.2 FL (9.6-12.0); Monocytes # 0.8 10*3/uL (0.11-0.8); Monocytes % 6.8 % (1.7-12.7); Platelet Count 425 T/CUMM (130-400); Red Blood Count 3.75 MC/CUMM (3.8-5.5)
[2021-10-08 06:33] LABS: Osmolality,Calculated 280.3 MOS/KG (273-304); Potassium 3.8 MMOL/L (3.5-5.1)
[2021-10-08] MEDS: INSULIN REGULAR 100 UNIT/ML SUBCUT SCH ×4 (08:25→21:40)
[2021-10-08] MEDS: HYDROXYCHLOROQUINE 200 MG TABLET PO SCH ×2 (08:26→20:45)
[2021-10-08] MEDS: metFORMIN 500 MG TABLET PO SCH ×2 (08:26→20:45)
[2021-10-08] MEDS: CLOPIDOGREL 75 MG TABLET PO SCH (08:27)
[2021-10-08] MEDS: ESCITALOPRAM 10 MG TABLET PO SCH (08:27)
[2021-10-08] MEDS: GABAPENTIN 600 MG TABLET PO SCH ×3 (08:27→20:45)
[2021-10-08] MEDS: METOPROLOL SUCCINATE XL 50 MG TABLET PO SCH (08:27)
[2021-10-08] MEDS: LOSARTAN 25 MG TABLET PO SCH ×2 (08:27→20:45)
[2021-10-08] MEDS: INSULIN GLARGINE 100 UNIT/ML SUBCUT SCH (08:27)
[2021-10-08] MEDS: FERRIC GLUCONATE COMPLEX 125 MG in SODIUM CHLORIDE 0.9% 100 ML IV SCH (08:29)
[2021-10-08] MEDS: Liraglutide [Victoza 3-Pak] SUBCUT SCH (08:37)
[2021-10-08] MEDS: VANCOMYCIN INJ 2,000 MG in SODIUM CHLORIDE 0.9% 500 ML IV SCH (15:03)
[2021-10-09] MEDS: INSULIN REGULAR 100 UNIT/ML SUBCUT SCH ×4 (08:33→20:30)
[2021-10-09] MEDS: ESCITALOPRAM 10 MG TABLET PO SCH (08:34)
[2021-10-09] MEDS: Liraglutide [Victoza 3-Pak] SUBCUT SCH (08:35)
[2021-10-09] MEDS: METOPROLOL SUCCINATE XL 50 MG TABLET PO SCH (08:36)
[2021-10-09] MEDS: GABAPENTIN 600 MG TABLET PO SCH ×3 (08:36→20:30)
[2021-10-09] MEDS: LOSARTAN 25 MG TABLET PO SCH ×2 (08:36→20:30)
[2021-10-09] MEDS: CLOPIDOGREL 75 MG TABLET PO SCH (08:37)
[2021-10-09] MEDS: INSULIN GLARGINE 100 UNIT/ML SUBCUT SCH (08:37)
[2021-10-09] MEDS: FERRIC GLUCONATE COMPLEX 125 MG in SODIUM CHLORIDE 0.9% 100 ML IV SCH (08:38)
[2021-10-09] MEDS: metFORMIN 500 MG TABLET PO SCH ×2 (09:09→20:30)
[2021-10-09] MEDS: HYDROXYCHLOROQUINE 200 MG TABLET PO SCH ×2 (09:09→20:30)
[2021-10-10] MEDS: INSULIN REGULAR 100 UNIT/ML SUBCUT SCH ×2 (09:09→12:35)
[2021-10-10] MEDS: HYDROXYCHLOROQUINE 200 MG TABLET PO SCH (10:00)
[2021-10-10] MEDS: metFORMIN 500 MG TABLET PO SCH (10:00)
[2021-10-10] MEDS: CLOPIDOGREL 75 MG TABLET PO SCH (10:00)
[2021-10-10] MEDS: GABAPENTIN 600 MG TABLET PO SCH (10:00)
[2021-10-10] MEDS: LOSARTAN 25 MG TABLET PO SCH (10:00)
[2021-10-10] MEDS: FERRIC GLUCONATE COMPLEX 125 MG in SODIUM CHLORIDE 0.9% 100 ML IV SCH (10:00)
[2021-10-10] MEDS: METOPROLOL SUCCINATE XL 50 MG TABLET PO SCH (10:00)
[2021-10-10] MEDS ORDERED: VANCOMYCIN INJ 2,000 MG in SODIUM CHLORIDE 0.9% 500 ML IV SCH (11:00)
[2021-10-10] MEDS: ESCITALOPRAM 10 MG TABLET PO SCH (11:21)
[2021-10-10] MEDS: INSULIN GLARGINE 100 UNIT/ML SUBCUT SCH (11:25)
[2021-10-10] MEDS: Liraglutide [Victoza 3-Pak] SUBCUT SCH (11:28)
[2021-10-10 11:46] VITALS: BP 165/93
== END 2021-10-10 14:45 | disposition home health service (06) | DRG 511 ==
LOC: N.ED 10:18 → SUATTDRO 17:53 → N.EDINP 17:53 → N.5E 21:01
PROVIDERS: ADMIT Internal Medicine; ATTEND Internal Medicine